=== PATIENT | female | born 1990 | race Caucasian/White ===

== ENCOUNTER 2020-03-22 23:47 | Emergency (ER) | payer BC, OTHER ==
[2020-03-23] MEDS ORDERED: Acetaminophen 500 MG TAB ONE (00:32)
[2020-03-23] MEDS ORDERED: Meclizine HCl 25 MG TAB ONE (00:32)
== END 2020-03-23 01:05 | disposition home or self-care (01) ==
LOC: MADERS 23:47
DX: O99.891 Other specified diseases and conditions complicating pregnancy (principal); R07.82 Intercostal pain; O99.342 Other mental disorders complicating pregnancy, second trimester; F41.9 Anxiety disorder, unspecified; Z3A.15 15 weeks gestation of pregnancy
CPT/HCPCS: 99284